=== PATIENT | female | born 1950 | race Caucasian/White ===

== ENCOUNTER 2018-10-05 07:05 | Emergency (ER) | payer MEDICARE, BC ==
[2018-10-05 07:18] VITALS: TEMP 99
--- NOTE | 2018-10-05 07:59 | ED ---
General Adult HPI - General Chief complaint: Shortness of Breath Stated complaint: YANET Time Seen by Provider: 10/05/18 07:20 Source: patient Mode of arrival: wheelchair Limitations: no limitations - History of Present Illness Initial comments: Dictation was produced using [employer] dictation software. please excuse any grammatical, word or spelling errors. Chief Complaint: 67-year-old female presents with 3 days of cough History of Present Illness: Is a 67-year-old female. She has chief complaint of cough, congestion or shortness of breath 3 days. Patient states that she has been having some bilateral back pain. Patient states she's been in the hospital closer . She was not able to come to the doctor until today. Patient states she's been having productive cough. No overt sick contacts. Patient does have constitutional symptoms. The ROS documented in this emergency department record has been reviewed and confirmed by me. Those systems with pertinent positive or negative responses have been documented in the HPI. All other systems are other negative and/or noncontributory. PHYSICAL EXAM: General Impression: Alert and oriented x3, not in acute distress HEENT: Normocephalic atraumatic, extra-ocular movements intact, pupils equal and reactive to light bilaterally, mucous membranes moist. Cardiovascular: Heart regular rate and rhythm, S1&S2 audible, no murmurs, rubs or gallops Chest: Bilateral lung crackles Abdomen: Bowel sounds present, abdomen soft, non-tender, non-distended, no organ omegaly Musculoskeletal: Pulses present and equal in all extremities, no peripheral edema Motor: no focal deficits noted Neurological: CN II-XII grossly intact, no focal motor or sensory deficits noted Skin: Intact with no visualized rashes Psych: Normal affect and mood ED course: 67-year-old female with clinical presentation consistent with URI versus pneumonia. Vital signs upon arrival shows hypoxia 94% on room air. Rest vital signs within acceptable limits. Patient has positive lung auscultatory findings. Flu test was obtained. Patient is fully positive. Chest x-ray obtained showing no suspicious acute infiltrate. Patient is asymptomatic for more than 48 hours. She denies any criteria for Tamiflu. Patient told to go home and rest and stay hydrated. She is told that she is free to take [id number] medications otherwise this patient is self resolving. Patient advised follow-up with primary care physician upon discharge. Patient told to return to emergency Department with any worsening symptoms. EKG interpretation: Ventricular rate 73, normal sinus rhythm, DC interval 152, QRS 68, QTc 43. No DC prolongation, no QTC prolongation, no ST or T-wave changes noted. Overall, this EKG is unremarkable Review of Systems ROS Statement: Those systems with pertinent positive or pertinent negative responses have been documented in the HPI. ROS Other: All systems not noted in ROS Statement are negative. Past Medical History Additional Past Medical History / Comment(s): allergies, pneumonia History of Any Multi-Drug Resistant Organisms: None Reported Past Surgical History: Orthopedic Surgery Additional Past Surgical History / Comment(s): nasal surgery Past Psychological History: No Psychological Hx Reported Smoking Status: Never smoker Past Alcohol Use History: None Reported Past Drug Use History: None Reported General Exam Limitations: no limitations Course Vital Signs 10/05/18 07:14 Temperature 99.0 F Pulse Rate 90 Respiratory 20 Rate Blood Pressure 138/76 O2 Sat by Pulse 94 L Oximetry Medical Decision Making - Lab Data Lab Results 10/05/18 Range/Units 07:51 Influenza Type A RNA Detected H (Not Detectd) Influenza Type B (PCR) Not Detected (Not Detectd) Disposition Clinical Impression: Influenza A Disposition: HOME SELF-CARE Condition: Good Instructions (If sedation given, give patient instructions): Influenza (ED) Is patient prescribed a controlled substance at d/c from ED?: No Referrals: Domenic Mancia DO [Primary Care Provider] - 1-2 days Time of Disposition: 08:39
--- NOTE | 2018-10-05 08:10 | XR ---
EXAMINATION TYPE: XR chest 2V DATE OF EXAM: 10/05/2018 COMPARISON: NONE HISTORY: Flulike symptoms and chest pain. TECHNIQUE: Frontal and lateral views of the chest are obtained. FINDINGS: Low lung volumes are present. There is no focal air space opacity, pleural effusion, or pn eumothorax seen. The cardiac silhouette size is upper limits of normal. Underlying scoliosis is seen . IMPRESSION: No suspicious acute infiltrate.
[2018-10-05 08:53] VITALS: BP 134/59; PULSE 73; RESP 16
== END 2018-10-05 09:03 | disposition home or self-care (01) ==
LOC: EC 07:05
DX: J10.1 Influenza due to other identified influenza virus with other respiratory manifestations (principal); R06.02 Shortness of breath
CPT/HCPCS: 71046; 87502; 99285

== ENCOUNTER → 2025-02-07 | Outpatient (CLI) | payer MEDICARE, BC ==
--- NOTE | 2025-02-07 15:35 | XR ---
EXAMINATION TYPE: XR knee complete bilateral DATE OF EXAM: 02/07/2025 COMPARISON: NONE CLINICAL INDICATION: Female, 74 years old with history of PAIN, DEG OA; TECHNIQUE: Three views bilateral are submitted. FINDINGS: Mild tricompartment joint space narrowing bilaterally with marginal spurring. Enthesophytes of the pa tella. No erosive changes. Generalized demineralization. Osseous structures are intact. No acute fra cture seen. IMPRESSION: 1. Mild osteoarthritis bilaterally. [facility], , 02/07/2025 3:32 PM
== END | disposition home or self-care (01) ==
LOC: LABWHC1 14:12
PROVIDERS: ATTEND Family Medicine
DX: M17.0 Bilateral primary osteoarthritis of knee (principal)